=== PATIENT | female | born 1930 | race Two or more races ===

== ENCOUNTER → 2018-04-09 | Outpatient (CLI) | payer OTHER ==
[~2018-04-09] MED LIST: ASPI81CH PO; ASPI81EC; CALCAVITD PO; CARV3.125 PO; CENTRUM SILVER1 EAC2 PO; Calcium 600 +1 EAC1 PO; DONE5 PO; ESOM20; FISH1000 PO; FOLI1 PO; FOLI400 PO; HCTZ; HYDCHL25 PO; HYDROCHLOROTH PO; Keflex500 MG PO; LISI20 PO; MAGOXI400 PO; METO25 PO; METO25ER PO; METRIBP PO; MIRT30 PO; NIAC500 PO; NIAC500ER PO; NITR.4SL SL; Norvasc5 MG PO; OMEG1CAP30 PO; OMEP40CA12 MT; Omega 3 1,0001 EACH MT; POTCHL10ER PO; Prilosec Otc20 MG PO; SPIR25 PO; Simvastatin10 MG PO; UBID100 PO; Zofran Odt4 MG SL; [UNRECOGNIZED DRUG - OTHER] PO
[2018-04-09 09:32] LABS: BASOPHILS ABSOLUTE AUTO 0.06 K/mm3 (0.00-0.23); BASOPHILS PERCENT AUTO 1 % (0-2); EOSINOPHILS ABSOLUTE AUTO 0.03 K/mm3 (0.00-0.68); EOSINOPHILS PERCENT AUTO 0 % (0-6); Hematocrit 40.1 % (33.0-51.0); Hemoglobin 14.2 g/dL (11.5-16.0); IMMATURE GRAN ABSOLUTE AUTO 0.04 K/mm3 (0.00-0.10); IMMATURE GRAN PERCENT AUTO 1 % (0-1); LYMPHOCYTES ABSOLUTE AUTO 1.75 K/mm3 (0.84-5.20); LYMPHOCYTES PERCENT AUTO 20 % (21-46); MONOCYTES ABSOLUTE AUTO 0.59 K/mm3 (0.16-1.47); MONOCYTES PERCENT AUTO 7 % (4-13); Mean Corpuscular HGB 30.3 pg (26.0-34.0); Mean Corpuscular HGB Conc 35.4 g/dL (31.5-36.5); Mean Corpuscular Volume 86 fL (80-100); Mean Platelet Volume 8.7 fL (9.1-12.4); NEUTROPHILS ABSOLUTE AUTO 6.14 K/mm3 (1.96-9.15); NEUTROPHILS PERCENT AUTO 71 % (41-73); Platelet Count 363 K/mm3 (150-400); RDW Coefficient Variation 12.4 % (11.7-14.2); RDW Standard Deviation 38.4 fL (35.1-46.3); Red Blood Cell Count 4.68 M/mm3 (3.80-5.20); White Blood Cell Count 8.61 K/mm3 (4.00-11.30)
[2018-04-09 09:53] LABS: Anion Gap 12 mmol/L (6-16); Blood Urea Nitrogen 26 mg/dL (8-24); Bun/Creatinine Ratio 21.3 (12.0-20.0); CO2, Blood 24 mmol/L (21-32); Calcium, Blood 9.4 mg/dL (8.5-10.1); Chloride, Blood 89 mmol/L (98-108); Creatinine, Blood 1.22 mg/dL (0.40-1.00); Glomerular Filtration Rate 42 (60-); Glucose, Blood 109 mg/dL (70-99); Potassium, Blood 4.7 mmol/L (3.5-5.5); Sodium, Blood 125 mmol/L (136-145); Thyroid Stimulating Hormone 1.577 uIU/mL (0.360-4.800); Troponin I <0.017 ng/mL (0.000-0.040)
== END ==
LOC: LAB SHORT 09:28 → LAB EV 09:28
PROVIDERS: Physician Assistant Surgical
DX: R53.83 Other fatigue (principal); R00.2 Palpitations
CPT/HCPCS: 80048; 84443; 84484; 85025

== ENCOUNTER → 2018-04-10 | Outpatient (CLI) | payer OTHER ==
[2018-04-10 11:15] LABS: Bun/Creatinine Ratio 14.7 (12.0-20.0); Calcium, Blood 8.9 mg/dL (8.5-10.1); Creatinine, Blood 1.09 mg/dL (0.40-1.00); Potassium, Blood 4.1 mmol/L (3.5-5.5)
== END ==
LOC: LAB EV 11:06 → LAB SHORT 11:06
PROVIDERS: Physician Assistant Surgical
DX: E87.1 Hypo-osmolality and hyponatremia (principal)
CPT/HCPCS: 80048

== ENCOUNTER → 2019-02-10 19:56 | Emergency (ER) | payer OTHER ==
[~2019-02-10] VITALS: Ht 152.4 cm; Wt 45.4 kg
[~2019-02-10 19:56] MED LIST changes: +FISH OIL + D31 EACH PO; -FISH1000 PO; +MEGESTROL800 MG/20 PO; +OMEPRAZOLE MAGN20 MG PO; +PARO10 PO
[2019-02-10 21:07] LABS: Hematocrit 33.6 % (33.0-51.0); Hemoglobin 11.1 g/dL (11.5-16.0); Mean Corpuscular HGB 30.8 pg (26.0-34.0); Mean Corpuscular Volume 93 fL (80-100); White Blood Cell Count 7.74 K/mm3 (4.00-11.30)
[2019-02-10 21:08] LABS: BASOPHILS PERCENT AUTO 1 % (0-2); EOSINOPHILS PERCENT AUTO 1 % (0-6); IMMATURE GRAN PERCENT AUTO 0 % (0-1); LYMPHOCYTES ABSOLUTE AUTO 2.13 K/mm3 (0.84-5.20); LYMPHOCYTES PERCENT AUTO 28 % (21-46); MONOCYTES PERCENT AUTO 14 % (4-13); Mean Platelet Volume 9.6 fL (9.1-12.4); NEUTROPHILS ABSOLUTE AUTO 4.29 K/mm3 (1.96-9.15); NEUTROPHILS PERCENT AUTO 56 % (41-73); Platelet Count 316 K/mm3 (150-400); RDW Coefficient Variation 12.9 % (11.7-14.2)
[2019-02-10 21:09] LABS: BASOPHILS ABSOLUTE AUTO 0.08 K/mm3 (0.00-0.23); EOSINOPHILS ABSOLUTE AUTO 1.11 K/mm3 (0.00-0.68)
[2019-02-10 22:02] LABS: Potassium, Blood 3.7 mmol/L (3.5-5.5)
[2019-02-10 22:03] LABS: Albumin, Blood 3.5 g/dL (3.4-5.0); Bilirubin, Total 0.7 mg/dL (0.1-1.0); Bun/Creatinine Ratio 14.1 (12.0-20.0); Calcium, Blood 8.2 mg/dL (8.5-10.1); Creatinine, Blood 0.99 mg/dL (0.40-1.00); Globulin, Blood 3.4 g/dL (2.2-4.0); Total Protein, Blood 6.9 g/dL (6.4-8.2); Troponin I 0.022 ng/mL (0.000-0.040)
== END | disposition home or self-care (01) ==
LOC: ER 19:56
PROVIDERS: Emergency Medicine
DX: J44.9 Chronic obstructive pulmonary disease, unspecified (principal); F03.90 Unspecified dementia, unspecified severity, without behavioral disturbance, psychotic disturbance, mood disturbance, and anxiety; Z79.899 Other long term (current) drug therapy
CPT/HCPCS: 71046; 71260; 80053; 84484; 85025; 85379; 93005; 93010; 99285-25; Q9967

== ENCOUNTER 2019-03-12 08:49 | Emergency (ER) | payer OTHER ==
[~2019-03-12] VITALS: Ht 157.5 cm; Wt 54.4 kg
[~2019-03-12 08:49] MED LIST changes: +ALPR.5 PO; +BP MED; +CARV6.25 PO
[2019-03-12 09:12] LABS: BASOPHILS ABSOLUTE AUTO 0.08 K/mm3 (0.00-0.23); BASOPHILS PERCENT AUTO 1 % (0-2); EOSINOPHILS ABSOLUTE AUTO 0.11 K/mm3 (0.00-0.68); EOSINOPHILS PERCENT AUTO 2 % (0-6); Hematocrit 36.8 % (33.0-51.0); IMMATURE GRAN ABSOLUTE AUTO 0.02 K/mm3 (0.00-0.10); IMMATURE GRAN PERCENT AUTO 0 % (0-1); LYMPHOCYTES ABSOLUTE AUTO 1.62 K/mm3 (0.84-5.20); LYMPHOCYTES PERCENT AUTO 25 % (21-46); MONOCYTES ABSOLUTE AUTO 0.59 K/mm3 (0.16-1.47); MONOCYTES PERCENT AUTO 9 % (4-13); Mean Corpuscular HGB 30.5 pg (26.0-34.0); Mean Corpuscular HGB Conc 32.6 g/dL (31.5-36.5); Mean Corpuscular Volume 93 fL (80-100); Mean Platelet Volume 9.3 fL (9.1-12.4); NEUTROPHILS ABSOLUTE AUTO 4.05 K/mm3 (1.96-9.15); NEUTROPHILS PERCENT AUTO 63 % (41-73); Platelet Count 340 K/mm3 (150-400); RDW Standard Deviation 41.6 fL (35.1-46.3); Red Blood Cell Count 3.94 M/mm3 (3.80-5.20); White Blood Cell Count 6.47 K/mm3 (4.00-11.30)
[2019-03-12 09:27] LABS: Alanine Aminotransfer (ALT/SGP 18 U/L (12-78); Albumin, Blood 3.3 g/dL (3.4-5.0); Albumin/Globulin Ratio 0.9 (0.8-1.8); Alk Phos 112 U/L (50-136); Anion Gap 6 mmol/L (6-16); Aspartate Aminotrans (AST/SGOT 17 U/L (12-37); Blood Urea Nitrogen 11 mg/dL (8-24); Bun/Creatinine Ratio 11.9 (12.0-20.0); CO2, Blood 27 mmol/L (21-32); Calcium, Blood 8.5 mg/dL (8.5-10.1); Chloride, Blood 102 mmol/L (98-108); Creatinine, Blood 0.93 mg/dL (0.40-1.00); Globulin, Blood 3.5 g/dL (2.2-4.0); Glomerular Filtration Rate >60 (60-); Glucose, Blood 126 mg/dL (70-99); Potassium, Blood 4.2 mmol/L (3.5-5.5); Sodium, Blood 135 mmol/L (136-145); Total Protein, Blood 6.8 g/dL (6.4-8.2); Troponin I <0.015 ng/mL (0.000-0.040)
[2019-03-12] MEDS ORDERED: MORP15ER PO (09:32)
[2019-03-12] MEDS ORDERED: ALPR.5 PO (09:33)
[2019-03-12] MEDS ORDERED: SPIR25 PO (09:33)
[2019-03-12] MEDS ORDERED: OMEPRAZOLE20 MG PO (09:33)
[2019-03-12] MEDS ORDERED: NITR.4SL SL (09:33)
[2019-03-12] MEDS ORDERED: POTA10T PO (09:33)
[2019-03-12] MEDS ORDERED: CARV6.25 PO (09:33)
[2019-03-12] MEDS ORDERED: FURO20 PO (09:34)
[2019-03-12] MEDS ORDERED: AMLO5 PO (09:34)
[2019-03-12] MEDS ORDERED: ONDA4ODT MM (12:36)
== END 2019-03-12 13:17 | disposition home or self-care (01) ==
LOC: ER 08:49
PROVIDERS: Emergency Medicine
DX: R07.9 Chest pain, unspecified (principal); Z79.899 Other long term (current) drug therapy; J44.9 Chronic obstructive pulmonary disease, unspecified
CPT/HCPCS: 71046; 74176; 80053; 83880; 84484; 85025; 93005; 93010; 96372-59; 96374; 96376; 99285-25; J2405; J2550

== ENCOUNTER 2019-03-18 08:11 | Emergency (ER) | payer OTHER ==
[~2019-03-18] VITALS: Ht 149.9 cm; Wt 56.7 kg
[~2019-03-18 08:11] MED LIST changes: +AMLO5 PO; +FURO20 PO; +MORP15ER PO; +OMEPRAZOLE20 MG PO; +ONDA4ODT MM; +POTA10T PO
== END 2019-03-18 11:08 | disposition home or self-care (01) ==
LOC: ER 08:11
DX: R62.7 Adult failure to thrive (principal); Z79.899 Other long term (current) drug therapy; I10 Essential (primary) hypertension; I25.10 Atherosclerotic heart disease of native coronary artery without angina pectoris; J44.9 Chronic obstructive pulmonary disease, unspecified; F03.90 Unspecified dementia, unspecified severity, without behavioral disturbance, psychotic disturbance, mood disturbance, and anxiety
CPT/HCPCS: 93005; 93010; 99284-25